=== PATIENT | female | born 1965 | race African-American/Black ===

== ENCOUNTER 2021-04-08 12:56 | Emergency (ER) | payer OTHER ==
[~2021-04-08] VITALS: Ht 162.6 cm; Wt 70.8 kg
[2021-04-08 13:45] LABS: Urine Bacteria MOD /hpf (None Seen); Urine Blood Negative /uL (Negative); Urine Specific Gravity 1.006 (1.001-1.035); Urine WBC 258 /hpf (0 - 5); Urine WBC Clumps PRESENT /hpf (None Seen)
[2021-04-08 13:57] VITALS: BP 151/95
== END 2021-04-08 14:28 | disposition home or self-care (01) ==
LOC: ER 12:56
DX: N39.0 Urinary tract infection, site not specified (principal)
CPT/HCPCS: 81001